=== PATIENT | male | born 1970 | race Caucasian/White ===

== ENCOUNTER 2019-06-23 11:08 | Emergency (ER) | payer BC ==
--- NOTE | 2019-06-23 13:11 | ED Physician Documentation ---
PD HPI HEENT - Stated complaint Stated Complaint: JAW PX - Chief complaint Chief Complaint: Heent - History obtained from History obtained from: Patient - History of Present Illness Timing - onset: How many days ago (few) Timing - duration: Days (few) Timing - details: Gradual onset, Still present Location: Mouth (right lower jaw/ first molar area) Associated symptoms: No: Fever, Swollen nodes Similar symptoms before: Has not had sx before Review of Systems Constitutional: denies: Fever Throat: reports: Dental pain / toothache. denies: Oral lesions / sores, Sore throat Neurologic: denies: Altered mental status, Headache PD PAST MEDICAL HISTORY - Past Medical History Cardiovascular: None Endocrine/Autoimmune: None Psych: ADD/ADHD - Past Surgical History Past Surgical History: No General: Other - Present Medications Home Medications: Ambulatory Orders Medication Instructions Recorded Confirmed oxyCODONE/ACET 5/325 [Percocet 5 1 - 2 each PO Q6H PRN #20 tablet 08/26/15 mg/325 mg] Clindamycin HCl [Clindamycin 300MG 300 mg PO TID #21 capsule 06/23/19 CAP] Hydrocodone/Acetaminophen [Mcgraws 1 each PO Q6H PRN #20 tablet 06/23/19 5-325 Tablet] Ondansetron Odt [Zofran] 4 mg TL Q6H PRN #10 tablet 06/23/19 - Allergies Allergies/Adverse Reactions: Allergies Allergy/AdvReac Type Severity Reaction Status Date / Time codeine Allergy Unknown Verified 08/25/15 23:09 Penicillins Allergy Unknown Verified 06/23/19 11:20 - Social History Does the pt smoke?: No Smoking Status: Never smoker Does the pt drink ETOH?: No Does the pt have substance abuse?: No - Immunizations Immunizations: TDAP >10years/unknown - POLST Patient has POLST: No PD ED PE NORMAL - Vitals Vital signs reviewed: Yes - General General: Alert and oriented X 3, No acute distress, Well developed/nourished - HEENT HEENT: Other (right lower gumline with tenderness and swelling, no fluctuance. Some dental decay, not much. There is swelling at mandible locally, again withou t fluctuance/firmness. ) - Neck Neck: Supple, no meningeal sign, No adenopathy Results - Vitals Vitals: Oxygen O2 Source Room air PD MEDICAL DECISION MAKING - ED course Complexity details: reviewed old records ([facility] for ADD meds. No regular opioids. ), considered differential, d/w patient Departure - Departure Disposition: 01 Home, Self Care Clinical Impression: Dental abscess Condition: Stable Record reviewed to determine appropriate education?: Yes Instructions: ED Abscess Dental Prescriptions: Clindamycin HCl [Clindamycin 300MG CAP] 300 mg PO TID #21 capsule Hydrocodone/Acetaminophen [Mcgraws 5-325 Tablet] 1 each PO Q6H PRN #20 tablet PRN Reason: Pain Ondansetron Odt [Zofran] 4 mg TL Q6H PRN #10 tablet PRN Reason: Nausea / Vomiting Comments: Stay well-hydrated. Rinse with antiseptic 2-3 times a day to cleanse the gum and tooth. Use an anti-inflammatory such as naproxen or ibuprofen 2-3 times a day at regular dosing. Ondansetron if needed for nausea. Clindamycin antibiotic as directed for the infection. Add Tylenol or hydrocodone if needed for pain. Follow-up with the dentist subsequently for more definitive care of the tooth as there is likely a cavity allowing the opportunity for the infection to develop. Discharge Date/Time: 06/23/19 13:57
[2019-06-23] MEDS ORDERED: CLINDAMYCIN 150 MG CAPSULE PO STA (13:42)
[2019-06-23] MEDS ORDERED: ONDANSETRON ODT 4 MG TABLET TL STA (13:42)
[2019-06-23] MEDS ORDERED: ACETAMINOPHEN 325 MG TABLET PO STA (13:42)
[2019-06-23 13:51] VITALS: BP 138/84
== END 2019-06-23 13:57 | disposition home or self-care (01) ==
LOC: ED 11:08
DX: K04.7 Periapical abscess without sinus (principal)
CPT/HCPCS: 99282; 99283; A9270; Q0162